=== PATIENT | female | born 1950 | race Native Hawaiian/Other Pacific Islander ===

== ENCOUNTER 2016-04-22 10:26 | Outpatient (CLI) | payer OTHER ==
[~2016-04-22] VITALS: Ht 162.6 cm; Wt 72.6 kg
[~2016-04-22 10:26] MED LIST: CIPR1SUS OT; LEVO0.0723 PO; NEXIUM40 M1 PO; OLOP0.1S OPTH; TRIM800T12 PO
[2016-04-22 11:00] VITALS: BP 108/59; TEMP 98.2
== END 2016-04-22 19:30 | disposition home or self-care (01) ==
LOC: INF 10:26
DX: M81.0 Age-related osteoporosis without current pathological fracture (principal)
CPT/HCPCS: 36415; 82310; 96372; J0897

== ENCOUNTER 2016-07-15 10:15 | Outpatient (CLI) | payer OTHER ==
[2016-07-15 10:30] LABS: PLATELET COUNT 249 K/uL (152-353)
[2016-07-15 11:36] LABS: SODIUM 140 mmol/L (136-145)
== END 2016-07-15 12:30 | disposition home or self-care (01) ==
LOC: LABW 10:15
PROVIDERS: Physician Assistant
DX: E03.8 Other specified hypothyroidism (principal); E78.00 Pure hypercholesterolemia, unspecified
CPT/HCPCS: 36415; 80053; 80061; 84439; 84443; 85027

== ENCOUNTER 2017-05-04 09:47 | Outpatient (CLI) | payer OTHER ==
[~2017-05-04] VITALS: Ht 162.6 cm; Wt 72.6 kg
== END 2017-05-04 13:00 | disposition home or self-care (01) ==
LOC: INF 09:47
DX: M81.0 Age-related osteoporosis without current pathological fracture (principal)
CPT/HCPCS: 36415; 82310; 96372; J0897

== ENCOUNTER 2017-08-22 11:01 | Outpatient (CLI) | payer OTHER ==
[2017-08-22 12:16] LABS: PLATELET COUNT 253 K/uL (152-353)
[2017-08-22 12:31] LABS: POTASSIUM 4.4 mmol/L (3.6-5.2)
== END 2017-08-22 21:54 | disposition home or self-care (01) ==
LOC: LABW 11:01
PROVIDERS: Physician Assistant
DX: E78.00 Pure hypercholesterolemia, unspecified (principal); E83.51 Hypocalcemia
CPT/HCPCS: 36415; 80053; 80061; 82306; 85027

== ENCOUNTER 2017-09-26 14:35 | Outpatient (CLI) | payer OTHER | END 2017-09-26 23:43 | disposition home or self-care (01) | LOC: LABW 14:35 | DX: E03.8 Other specified hypothyroidism (principal) | CPT/HCPCS: 36415; 84439; 84443 ==

== ENCOUNTER 2017-11-02 10:15 | Outpatient (CLI) | payer OTHER ==
[~2017-11-02] VITALS: Ht 162.6 cm; Wt 71.7 kg
== END 2017-11-02 23:20 | disposition home or self-care (01) ==
LOC: INF 10:15
DX: M81.0 Age-related osteoporosis without current pathological fracture (principal)
CPT/HCPCS: 36415; 82310; 96372; J0897

== ENCOUNTER 2018-05-17 08:34 | Outpatient (CLI) | payer OTHER ==
[~2018-05-17] VITALS: Ht 162.6 cm; Wt 71.7 kg
[2018-05-17 09:55] VITALS: BP 114/76; TEMP 97.8
== END 2018-05-17 10:45 | disposition home or self-care (01) ==
LOC: INF 08:34
DX: M81.0 Age-related osteoporosis without current pathological fracture (principal)
CPT/HCPCS: 36415; 82310; 96372; J0897

== ENCOUNTER 2018-08-17 10:08 | Outpatient (CLI) | payer OTHER ==
[2018-08-17 10:38] LABS: PLATELET COUNT 248 K/uL (152-353)
[2018-08-17 11:14] LABS: POTASSIUM 4.1 mmol/L (3.6-5.2)
== END 2018-08-17 23:32 | disposition home or self-care (01) ==
LOC: LABW 10:08
PROVIDERS: Physician Assistant
DX: E03.8 Other specified hypothyroidism (principal); E78.00 Pure hypercholesterolemia, unspecified; Z78.0 Asymptomatic menopausal state; E55.9 Vitamin D deficiency, unspecified; Z79.899 Other long term (current) drug therapy
CPT/HCPCS: 36415; 80053; 80061; 82306; 83036; 84443; 85027

== ENCOUNTER 2018-10-24 14:57 | Outpatient (CLI) | payer OTHER ==
[2018-10-24 15:13] LABS: PLATELET COUNT 255 K/uL (152-353)
[2018-10-24 15:26] LABS: POTASSIUM 4.1 mmol/L (3.6-5.2)
== END 2018-10-24 19:48 | disposition home or self-care (01) ==
LOC: LABW 14:57
PROVIDERS: Internal Medicine
DX: D69.2 Other nonthrombocytopenic purpura (principal)
CPT/HCPCS: 36415; 80053; 85027

== ENCOUNTER 2018-12-11 07:57 | Outpatient (CLI) | payer OTHER ==
[~2018-12-11] VITALS: Ht 30.5 cm; Wt 0.5 kg
== END 2018-12-11 11:03 | disposition home or self-care (01) ==
LOC: INF 07:57
DX: M81.0 Age-related osteoporosis without current pathological fracture (principal)
CPT/HCPCS: 36415; 82310; 96372; J0897

== ENCOUNTER 2019-08-06 12:59 | Outpatient (CLI) | payer OTHER ==
[2019-08-06 13:47] LABS: POTASSIUM 4.2 mmol/L (3.6-5.2)
== END 2019-08-06 23:55 | disposition home or self-care (01) ==
LOC: LAB 12:59
PROVIDERS: Internal Medicine
DX: E03.8 Other specified hypothyroidism (principal); M81.0 Age-related osteoporosis without current pathological fracture; E78.00 Pure hypercholesterolemia, unspecified
CPT/HCPCS: 80053; 80061; 81000; 82306; 84439; 84443

== ENCOUNTER 2019-08-12 10:24 | Outpatient (CLI) | payer OTHER ==
[~2019-08-12] VITALS: Ht 162.6 cm; Wt 68.0 kg
[2019-08-12 10:35] VITALS: BP 133/74; TEMP 97.8
== END 2019-08-12 11:30 | disposition home or self-care (01) ==
LOC: INF 10:24
DX: M81.0 Age-related osteoporosis without current pathological fracture (principal)
CPT/HCPCS: 36415; 82310; 96372; J0897

== ENCOUNTER 2019-08-21 09:28 | Outpatient (CLI) | payer OTHER ==
[2019-08-21 09:45] LABS: PLATELET COUNT 283 K/uL (152-353)
== END 2019-08-21 19:46 | disposition home or self-care (01) ==
LOC: LABW 09:28
PROVIDERS: Internal Medicine
DX: E03.8 Other specified hypothyroidism (principal)
CPT/HCPCS: 36415; 85027

== ENCOUNTER 2020-02-04 10:04 | Outpatient (CLI) | payer OTHER ==
[2020-02-04 10:39] LABS: PLATELET COUNT 246 K/uL (152-353)
[2020-02-04 11:03] LABS: POTASSIUM 3.7 mmol/L (3.6-5.2)
== END 2020-02-04 19:55 | disposition home or self-care (01) ==
LOC: LABW 10:04
PROVIDERS: ATTEND Internal Medicine
DX: E78.00 Pure hypercholesterolemia, unspecified (principal); E03.8 Other specified hypothyroidism; F41.8 Other specified anxiety disorders
CPT/HCPCS: 36415; 80053; 80061; 81000; 84439; 84443; 85027

== ENCOUNTER 2020-02-17 09:57 | Outpatient (CLI) | payer OTHER ==
[~2020-02-17] VITALS: Ht 162.6 cm; Wt 68.0 kg
[2020-02-17 10:01] VITALS: BP 125/59; TEMP 97.9
== END 2020-02-17 11:30 | disposition home or self-care (01) ==
LOC: INF 09:57
PROVIDERS: ATTEND Internal Medicine
DX: M81.0 Age-related osteoporosis without current pathological fracture (principal)
CPT/HCPCS: 36415; 82310; 96372; J0897

== ENCOUNTER 2020-04-01 09:54 | Outpatient (CLI) | payer OTHER | END 2020-04-01 21:42 | disposition home or self-care (01) | LOC: INF 09:54 | PROVIDERS: ATTEND Internal Medicine | DX: Z23 Encounter for immunization (principal) | CPT/HCPCS: 96372 ==

== ENCOUNTER 2020-04-29 09:45 | Outpatient (CLI) | payer OTHER | END 2020-04-29 21:06 | disposition home or self-care (01) | LOC: INF 09:45 | PROVIDERS: ATTEND Internal Medicine | DX: Z23 Encounter for immunization (principal) | CPT/HCPCS: 96372 ==

== ENCOUNTER 2020-08-12 12:08 | Day surgery (SDC) | payer OTHER ==
[~2020-08-12] VITALS: Ht 30.5 cm; Wt 0.5 kg
== END 2020-08-12 14:59 | disposition home or self-care (01) ==
LOC: OR 12:08
PROVIDERS: ATTEND Internal Medicine Gastroenterology
PROC: 0DB68ZZ Excision of Stomach, Via Natural or Artificial Opening Endoscopic (ICD-10-PCS; principal; 2020-08-12)
PROC: 0DB88ZZ Excision of Small Intestine, Via Natural or Artificial Opening Endoscopic (ICD-10-PCS; 2020-08-12)
PROC: 0D738ZZ Dilation of Lower Esophagus, Via Natural or Artificial Opening Endoscopic (ICD-10-PCS; 2020-08-12)
DX: K21.00 Gastro-esophageal reflux disease with esophagitis, without bleeding (principal); K22.2 Esophageal obstruction; K44.9 Diaphragmatic hernia without obstruction or gangrene; K29.50 Unspecified chronic gastritis without bleeding; R10.13 Epigastric pain; Z20.822 Contact with and (suspected) exposure to COVID-19
CPT/HCPCS: 87635; J1885; J2001; J2405; J2704; J2765; U0003

== ENCOUNTER 2020-08-19 10:04 | Outpatient (CLI) | payer OTHER ==
[~2020-08-19] VITALS: Ht 162.6 cm; Wt 71.2 kg
== END 2020-08-19 11:30 | disposition home or self-care (01) ==
LOC: INF 10:04
PROVIDERS: ATTEND Internal Medicine Endocrinology, Diabetes & Metabolism
DX: M81.0 Age-related osteoporosis without current pathological fracture (principal)
CPT/HCPCS: 96372; J0897

== ENCOUNTER 2020-12-18 10:09 | Outpatient (CLI) | payer OTHER | END 2020-12-18 19:24 | disposition home or self-care (01) | LOC: LAB 10:09 | PROVIDERS: ATTEND Internal Medicine Gastroenterology | DX: K64.0 First degree hemorrhoids (principal) | CPT/HCPCS: 82272 ==

== ENCOUNTER 2021-03-08 08:46 | Outpatient (CLI) | payer OTHER ==
[~2021-03-08] VITALS: Ht 162.6 cm; Wt 71.3 kg
== END 2021-03-08 19:47 | disposition home or self-care (01) ==
LOC: INF 08:46
PROVIDERS: ATTEND Internal Medicine Endocrinology, Diabetes & Metabolism
DX: M81.0 Age-related osteoporosis without current pathological fracture (principal)
CPT/HCPCS: 36415; 82310; 96372; J0897

== ENCOUNTER 2021-09-27 09:46 | Outpatient (CLI) | payer OTHER ==
[~2021-09-27] VITALS: Ht 162.6 cm; Wt 72.1 kg
[2021-09-27 10:04] VITALS: BP 120/79; TEMP 97.8
--- NOTE | 2021-09-27 10:19 | NUR ---
1004 PT AMBULATED TO ROOM 1126 FOR OP INJECTION VS OBTAINED PRDERS FACED TO PHARMACY.
--- NOTE | 2021-09-27 10:26 | NUR ---
PHARMACY NOTIFIED OF CALCIUM LEVEL AT THIS TIME.
--- NOTE | 2021-09-27 10:34 | NUR ---
1029 INJECTION GIVEN IN LEFT ARM WITH NO COMPLICATIONS NO COMPLAINTS VOICED FROM PT.
--- NOTE | 2021-09-27 10:43 | NUR ---
SITE WNL PT EDUCATED TO NOTIFY PCP IN [place] FOR NEW PROLIA ORDER. PT VERBALIZED UNDERSTANDING. VS OBTAINED
[2021-09-27 10:44] VITALS: BP 121/62; TEMP 97.7
--- NOTE | 2021-09-27 10:45 | NUR ---
PT AMBULATED OUT OF FACILITYTO POV WHERE HER WAS WAITING ON HER.
== END 2021-09-27 18:57 | disposition home or self-care (01) ==
LOC: INF 09:46
PROVIDERS: ATTEND Internal Medicine
DX: M81.0 Age-related osteoporosis without current pathological fracture (principal)
CPT/HCPCS: 36415; 82310; 96372; J0897

== ENCOUNTER → 2022-02-02 | Outpatient (CLI) | payer OTHER | LOC: LABW 08:22 | PROVIDERS: ATTEND Nurse Practitioner Family | DX: E03.8 Other specified hypothyroidism (principal) | CPT/HCPCS: 36415; 84436; 84439; 84443; 84481 ==

== ENCOUNTER 2022-04-12 08:40 | Outpatient (CLI) | payer OTHER ==
[2022-04-12 09:06] LABS: PLATELET COUNT 259 K/uL (152-353)
[2022-04-12 09:28] LABS: POTASSIUM 3.9 mmol/L (3.6-5.2)
== END 2022-04-12 19:35 | disposition home or self-care (01) ==
LOC: LABW 08:40
PROVIDERS: ATTEND Nurse Practitioner Family
DX: M85.88 Other specified disorders of bone density and structure, other site (principal); E03.8 Other specified hypothyroidism; F41.8 Other specified anxiety disorders; Z13.1 Encounter for screening for diabetes mellitus; K21.9 Gastro-esophageal reflux disease without esophagitis; R31.9 Hematuria, unspecified; E78.49 Other hyperlipidemia; Z79.899 Other long term (current) drug therapy; E55.9 Vitamin D deficiency, unspecified
CPT/HCPCS: 36415; 80053; 80061; 81002; 82043; 82306; 83036; 84436; 84443; 85027; 87088

== ENCOUNTER 2022-05-09 13:38 | Outpatient (CLI) | payer OTHER ==
[~2022-05-09] VITALS: Ht 162.6 cm; Wt 72.3 kg
[2022-05-09 13:45] VITALS: BP 128/68; TEMP 97.5
== END 2022-05-09 19:21 | disposition home or self-care (01) ==
LOC: INF 13:38
PROVIDERS: ATTEND Internal Medicine
DX: M81.0 Age-related osteoporosis without current pathological fracture (principal)
CPT/HCPCS: 96372; J0897

== ENCOUNTER 2022-11-10 09:53 | Outpatient (CLI) | payer OTHER ==
[~2022-11-10] VITALS: Ht 162.6 cm; Wt 72.6 kg
[2022-11-10 10:00] VITALS: BP 113/63; TEMP 98.2
== END 2022-11-10 18:39 | disposition home or self-care (01) ==
LOC: INF 09:53
PROVIDERS: ATTEND Internal Medicine Endocrinology, Diabetes & Metabolism
DX: M81.0 Age-related osteoporosis without current pathological fracture (principal)
CPT/HCPCS: 82310; 96372; J0897